=== PATIENT | female | born 1970 | race Caucasian/White ===

== ENCOUNTER 2019-07-29 18:02 | Observation (INO) ==
[2019-07-29] MEDS ORDERED: NITROGLYCERIN SL 0.4 MG TABLET SL STA (18:37)
[2019-07-29] MEDS ORDERED: ONDANSETRON 4 MG/2 ML VIAL IV ONE (19:17)
[2019-07-29 19:23] LABS: Basophils # 0.1 10*3/uL (0.0-0.2); Basophils % 0.9 % (0.0-0.8); Eosinophils # 0.2 10*3/uL (0.0-0.87); Eosinophils % 2.3 % (0.00-10.9); Hematocrit 38.9 VOL% (35.7-47.0); Hemoglobin 12.8 GM/DL (12.0-16.0); Immature Granulocytes % 0.2 %; Immature Granulocytes Absolute 0.02 #; Lymphocytes # 2.2 10*3/uL (1.4-4.0); Lymphocytes % 23.8 % (21.3-54.2); Mean Corpuscular HGB Conc 32.9 GM/DL (32-36); Mean Corpuscular Volume 93.3 FL (87-102); Mean Platelet Volume 10.5 FL (9.6-12.0); Monocytes % 7.8 % (1.7-12.7); Platelet Count 279 T/CUMM (130-400); Red Blood Count 4.17 MC/CUMM (3.8-5.5); Red Cell Distribution Width 13.1 % (9.3-17.3); White Blood Count 9.4 T/CUMM (4-12)
[2019-07-29 19:37] LABS: Calcium 9.5 MG/DL (8.5-10.1); Osmolality,Calculated 283.3 MOS/KG (273-304)
[2019-07-29] MEDS ORDERED: MORPHINE 4 MG/1 ML VIAL IV STA (19:40)
[2019-07-29] MEDS ORDERED: ONDANSETRON 4 MG/2 ML VIAL IV PRN (21:01)
[2019-07-29] MEDS ORDERED: NITROGLYCERIN SL 0.4 MG TABLET SL PRN (21:01)
[2019-07-29] MEDS ORDERED: PANTOPRAZOLE 40 MG TABLET PO PRN (21:05)
[2019-07-29] MEDS ORDERED: ONDANSETRON 4 MG TABLET PO PRN (21:05)
[2019-07-29] MEDS ORDERED: ENOXAPARIN 40 MG/0.4 ML SYRINGE SUBCUT SCH (21:30)
[2019-07-29 21:32] LABS: Risk Ratio 3.22
[2019-07-30] MEDS ORDERED: carvediloL 12.5 MG TABLET PO SCH (08:00)
[2019-07-30] MEDS ORDERED: FLUTICASONE 50 MCG NASAL SPRAY 16 GM BOTTLE BOTH NARES SCH (09:00)
[2019-07-30] MEDS ORDERED: CHOLECALCIFEROL 1,000 UNIT TABLET PO SCH (09:00)
[2019-07-30] MEDS ORDERED: LORATADINE 10 MG TABLET PO SCH (09:00)
[2019-07-30] MEDS ORDERED: SPIRONOLACTONE 25 MG TABLET PO SCH (09:00)
[2019-07-30] MEDS ORDERED: ASPIRIN CHEW 81 MG TABLET PO SCH (09:00)
[2019-07-30] MEDS ORDERED: THYROID 180 MG PO SCH (09:00)
[2019-07-30] MEDS ORDERED: TOPIRAMATE 25 MG TABLET PO SCH (09:00)
[2019-07-30] MEDS ORDERED: Apremilast [Otezla] 30 MG PO SCH (09:00)
[2019-07-30 11:30] VITALS: BP 116/71
== END 2019-07-30 14:08 | disposition home or self-care (01) ==
LOC: N.ED 18:02 → N.EDINP 18:02 → SUATTDRO 21:01 → N.TELES 21:17
PROVIDERS: ADMIT Internal Medicine; ATTEND Internal Medicine